=== PATIENT | female | born 1975 | race Caucasian/White ===

== ENCOUNTER → 2016-07-26 | Outpatient (CLI) | payer OTHER ==
[2016-07-27 06:58] LABS: BLOOD UREA NITROGEN 11 mg/dL (7-22)
[2016-07-27 06:59] LABS: BUN/CREATININE RATIO 15.71 (6-20); CALCIUM 9.2 mg/dL (8.7-10.7); EST GLOMERULAR FILTRATION > 60 (>60 ml/min/1.73m(2)); SERUM ALBUMIN 4.1 g/dL (3.5-4.8)
[2016-07-27 07:00] LABS: CHOL/HDL RATIO 2.23 RATIO (0-4.0); HDL CHOLESTEROL 63 mg/dL (40-150); SERUM CHOLESTEROL 141 mg/dL (120-200)
== END ==
LOC: LAB 10:50
PROVIDERS: ATTEND Physician Assistant Medical
DX: R60.1 Generalized edema (principal); E66.9 Obesity, unspecified; Z83.3 Family history of diabetes mellitus
CPT/HCPCS: 80053; 80061; 83036; 84443